=== PATIENT | male | born 1995 | race Caucasian/White ===

== ENCOUNTER 2024-07-31 20:26 | Emergency (ER) | payer SELFPAY ==
[2024-07-31 20:32] VITALS: BP 139/86
[2024-07-31 21:00] VITALS: BP 121/69
[2024-07-31 22:00] VITALS: BP 165/78
--- NOTE | 2024-07-31 22:41 | ED.MUSCINJ ---
HPI-Injury
General
Chief Complaint: Musculo-Skeletal Complaint
Source: patient
Time Seen by Provider: 07/31/24 22:37
Nursing documentation reviewed up to this point in time: agreed with
History of Present Illness-Injury
Initial Injury comments:
Pleasant 29-year-old male presents to the emergency department with left patella dislocation/subluxation. This occurred while playing basketball. Patient crashed into the boards. He had immediate pain with knee swelling. He states that the
patella was high riding. When he got into the bed at the hospital he states that the patella moved back into position. Patient was still with a flexed knee. I was able to gently massage her back into a straight position. Patient had immediate
pain relief following the extension of the leg. Patient did have swelling about the knee.
Musculoskeletal Injury Exam
Musculoskeletal Injury Exam
Left Knee:
Pain with Movement?: Moderate (Initial exam prior to reduction)
Tender to palpation?: Mild
Soft tissue swelling?: Moderate
External deformity and angulation?: Mild
Joint effusion?: Moderate
Contusion?: None
Hematoma-local bleeding into tissue?: Moderate
Strain- Sprain- Tear (Connective tissue injury)?: Other (Likely, but unknown)
Joint instability?: Yes
Malalignment/deformity?: No
Range of motion: Limited
Distal skin color and temperature: normal-warm & good color
Capillary Refill: normal
Normal distal neurovascular exam?: Yes
Phy Exam
General Physical Exam
General Presentation: well appearing and no apparent distress
General age: appears stated age
General Skin: warm and dry
General Habitus: normal
General Mental: alert
General Hydration: appears well hydrated
ENT Exam
ENT Exam: EOMI, pharynx normal, neck supple and normocephalic
Eye Exam
Eye Exam: PERRL, cornea clear and conjunctiva normal
Cardiovascular Exam
Cardiovascular Exam: regular rate/rhythm and no edema
Pulmonary Exam
Pulmonary Exam: lungs clear, no respiratory distress, no rales, no crackles, no rhonchi, no stridor, no wheezing and no cough
Gastrointestinal Exam
Gastrointestinal Exam: normal bowel sounds, non tender, soft, no organomegaly, no pulsatile mass and non distended
Neurological Exam
Neurological Exam: alert and oriented x3
[place] Coma Scale
Eye Opening: Spontaneous
Verbal Response: Oriented
Motor Response: Obeys Commands
GCS Total Score: 15
Musculoskeletal Exam
Musculoskeletal Exam: joint swelling and neuro vasc intact
Skin Exam
Skin Exam: normal color and warm/dry
Psychiatric Exam
Psychiatric Exam: normal mood/affect and anxious
Injury Course
Orders/Labs/Results
Orders:
Orders
07/31/24 22:35
HYDROmorphone [Dilaudid] 1 mg .ROUTE .STK-MED ONE
07/31/24 22:50
Knee Immobilizer Right-Treatme ONCE
Knee, Left 4 or More Views [CR Knee - Left 4 Or More View*] Urgent
Comment:
Reason For Exam: patellar dislocation/subluxation
US Legs, Left [US Periph Venous LOWER Ext LT] Urgent
Comment:
Reason For Exam: knee pain
07/31/24 23:56
Crutches-Treatment ONCE
08/01/24 00:10
Acetaminophen [Tylenol] 1,000 mg .ROUTE .STK-MED ONE
Acetaminophen [Tylenol] 1,000 mg PO NOW STA
*Radiology
Radiology exam reviewed: radiology read reviewed
*Critical Care Note
Total Time (30-74mins, 75-104mins- exclusive of procedures): Not Applicable
Update Note
Update Note:
Spoke with Dr. Kaiser who agreed with plan. Will not tap the effusion at this time. Patient will follow-up
ED Attending Note
-
Portions of this chart may have been created with voice recognition software.� Occasional wrong word or��sound alike� substitutions may have occurred due to the inherent limitations of voice recognition software.
Discharge Plan
Departure
Patient Disposition: Home (Routine Discharge)
Date of Disposition: 07/31/24
Time of Disposition: 23:55
Patient with high blood pressure during this ER visit?: Yes
Condition: Good
Discharge Problem:
Patellar fracture
Instructions: How to Use Crutches, Knee Immobilizer (DC), Using Cold for Pain
Prescriptions:
New
diclofenac sodium 75 mg tablet,delayed release (DR/EC)
75 mg PO BID Qty: 10 0RF
Referrals:
NONE,* [Family Provider] -
Shaun Kaiser MD [Active] - Next open appointment
Activity Restrictions/Additional Instructions:
Limit walking, standing, impact, and repetitive bending, particularly if these activities cause pain.
Apply ice and elevate the leg for 10 to 15 minutes four times daily.
Use the restraining brace with fabric stays during the day.
Interventions
Interventions:
*Risk Screen - Suicide Last Done: 07/31/24 20:32
*General Assessment Last Done: 07/31/24 20:32
*Neglect/Abuse Screening Last Done: 07/31/24 20:32
*ED- Fall Risk Assessment Last Done: 08/01/24 00:13
*ED COVID-19 Vaccine History Last Done: 07/31/24 20:32
*Nursing Disposition Last Done: 08/01/24 00:14
ED-Musculoskeletal Assessment Last Done: 07/31/24 21:24
Discharge Date and Time
Discharge Date/Time: 08/01/24 00:14
Print Language: NEPALI
[2024-08-01] MEDS: TYLENOL 1000 MG PO (00:10)
== END 2024-08-01 00:14 | disposition home or self-care (01) ==
LOC: EMR 20:26
PROVIDERS: EMERGENCY PHYSICIAN Student in an Organized Health Care Education/Training Program
DX: S82.002A Unspecified fracture of left patella, initial encounter for closed fracture (principal); W22.8XXA Striking against or struck by other objects, initial encounter; Y93.67 Activity, basketball; R22.42 Localized swelling, mass and lump, left lower limb
CPT/HCPCS: 29505; 99284; 73564; 93971